=== PATIENT | male | born 1975 | race African-American/Black ===

== ENCOUNTER 2019-04-27 12:18 | Inpatient (IN) | payer BC, OTHER ==
[~2019-04-27] VITALS: Ht 177.8 cm; Wt 79.4 kg
[2019-04-27] VITALS (13 sets, daily range): BP systolic 112–158; BP diastolic 73–90
[2019-04-27] MEDS ORDERED: AMLO10TA80 PO (12:27)
[2019-04-27] MEDS ORDERED: ATOR40TA70 PO (12:27)
[2019-04-27 14:33] LABS: BASOPHILS % 0.9 % (0.0-2.0); EOSINOPHILS % 2.4 % (0.0-5.0); HEMATOCRIT. 39.5 % (42.0-52.0); HEMOGLOBIN. 12.8 g/dL (14.0-18.0); LYMPHOCYTES % 12.7 % (20.0-50.0); MEAN CORPUSCULAR VOLUME 80.2 fL (80.0-94.0); MEAN PLATELET VOLUME 8.7 fl (7.4-10.4); MONOCYTES % 10.1 % (2.0-8.0); NEUTROPHILS % 73.9 % (40.0-76.0); PLATELET 206 x1000/uL (130-400); RED BLOOD CELL COUNT 4.93 mill/uL (4.7-6.1); RED CELL DISTRIBUTION WIDTH 15.7 % (11.6-14.6)
[2019-04-27 14:40] LABS: CHLORIDE 95 mEq/L (98-107)
[2019-04-27 14:44] LABS: ETHANOL BLOOD < 10 mg/dL
[2019-04-27] MEDS ORDERED: FUROSEMIDE 40MG/4ML VIAL IVP ONE (15:00)
[2019-04-27] MEDS ORDERED: DEXAMETHASONE 10 MG/ML VIAL IV ONE (15:00)
[2019-04-27] MEDS ORDERED: LEVETIRACETAM 500MG PREMIX 200 ML IV ONE (15:00)
[2019-04-27] MEDS ORDERED: MANNITOL 20% (20GM/100ML) BAG 500ML PREMIX IV ONE (15:30)
[2019-04-27 16:14] LABS: CLARITY URINE CLOUDY (CLEAR); COLOR URINE YELLOW (YELLOW); KETONES URINE TRACE (NEGATIVE); LEUKOCYTE ESTERASE URINE NEGATIVE (NEGATIVE); NITRITE URINE NEGATIVE (NEGATIVE); OCCULT BLOOD URINE TRACE (NEGATIVE); PROTEIN URINE 3+ (NEGATIVE); SPECIFIC GRAVITY URINE 1.016 (1.005-1.030); UROBILINOGEN URINE 0.2 E.U./dL (0.2-1.0)
[2019-04-27 16:23] LABS: PARTIAL THROMBOPLASTIN TIME 24.7 sec (23.4-31.0); PROTHROMBIN TIME 10.5 sec (9.6-11.0)
[2019-04-27] MEDS ORDERED: MANNITOL 20% 100 ML IV NR (16:30)
[2019-04-27 16:33] LABS: *BARBITURATES SCREEN URINE NEGATIVE (NEGATIVE); *BENZODIAZEPINES SCREEN URINE NEGATIVE (NEGATIVE); *COCAINE SCREEN URINE NEGATIVE (NEGATIVE); METHADONE URINE SCREEN NEGATIVE (NEGATIVE)
[2019-04-27 16:34] LABS: *AMPHETAMINES SCREEN URINE NEGATIVE (NEGATIVE); CANNABINOID URINE SCREEN NEGATIVE (NEGATIVE); OPIATES URINE SCREEN NEGATIVE (NEGATIVE); PHENCYCLIDINE URINE SCREEN NEGATIVE (NEGATIVE)
[2019-04-27] MEDS ORDERED: CEFTRIAXONE 2 G PREMIX 50 ML IV ONE (16:45)
[2019-04-27] MEDS ORDERED: IOHEXOL-350 100 ML BOTTLE ONE (17:39)
[2019-04-27] MEDS ORDERED: DEXT 5%/0.45% NACL 1000ML 1,000 ML IV SCH (20:15)
[2019-04-27] MEDS ORDERED: MORPHINE SULFATE 2 MG/ML CPJ (NOT FOR IM USE) IV PRN (20:15)
[2019-04-27] MEDS: DEXAMETHASONE 4MG/ML 1ML VIAL IV SCH (20:55)
[2019-04-27] MEDS ORDERED: NICARDIPINE 100 MG in SODIUM CHLORIDE 0.9% 60 ML IV PRN (21:00)
[2019-04-27] MEDS: LEVETIRACETAM 500MG PREMIX 100 ML IV SCH (21:55)
[2019-04-28] VITALS (85 sets, daily range): BP systolic -3–159; BP diastolic -3–102
[2019-04-28] MEDS: DEXAMETHASONE 4MG/ML 1ML VIAL IV SCH ×4 (03:34→21:38)
[2019-04-28] MEDS: LEVETIRACETAM 500MG PREMIX 100 ML IV SCH ×2 (08:04→21:50)
[2019-04-28] MEDS: NICARDIPINE 100 MG in SODIUM CHLORIDE 0.9% 60 ML IV PRN ×2 (08:07→16:07)
[2019-04-28] MEDS ORDERED: BACITRACIN 15GM TUBE TOP ONE (10:49)
[2019-04-28] MEDS ORDERED: THROMBIN (BOVINE) 5000 UNITS/VIAL TOP ONE (10:50)
[2019-04-28] MEDS ORDERED: LIDOCAINE HCL/EPINEPHRINE 1%-EPI 1:100,000 20 ML VIAL ONE (10:50)
[2019-04-28] MEDS ORDERED: NORMAL SALINE 0.9% 10 ML SYR ONE (10:50)
[2019-04-28] MEDS ORDERED: BACITRACIN 50,000 UNITS/VIAL ONE (10:50)
[2019-04-28 10:55] LABS: HEMATOCRIT. 36.6 % (42.0-52.0); HEMOGLOBIN. 11.8 g/dL (14.0-18.0); MEAN CORPUSCULAR HEMOGLOBIN 25.9 pg (28.0-32.0); MEAN CORPUSCULAR VOLUME 80.6 fL (80.0-94.0); MEAN PLATELET VOLUME 8.8 fl (7.4-10.4); PLATELET 216 x1000/uL (130-400); RED BLOOD CELL COUNT 4.54 mill/uL (4.7-6.1); RED CELL DISTRIBUTION WIDTH 15.4 % (11.6-14.6)
[2019-04-28 11:30] LABS: PLATELET ESTIMATE NORMAL
[2019-04-28 11:51] LABS: INR 1.1; PARTIAL THROMBOPLASTIN TIME 21.9 sec (23.4-31.0); PROTHROMBIN TIME 10.9 sec (9.6-11.0)
[2019-04-28] MEDS ORDERED: NEOSTIGMINE METHYLSULFATE 1MG/ML 10 ML VIAL ONE (12:10)
[2019-04-28] MEDS ORDERED: ROCURONIUM BROMIDE 10MG/ML VIAL 5ML IV ONE (12:10)
[2019-04-28] MEDS ORDERED: FENTANYL CITRATE/PF 50MCG/ML 2ML VIAL ONE ×2 (12:10→12:58)
[2019-04-28] MEDS ORDERED: MIDAZOLAM HCL 2 MG/2 ML VIAL ONE (12:11)
[2019-04-28] MEDS ORDERED: GLYCOPYRROLATE 0.2 MG/ML 2ML VIAL ONE (12:11)
[2019-04-28] MEDS ORDERED: PROPOFOL 200MG/20ML VIAL IV ONE (12:11)
[2019-04-28] MEDS: SODIUM CHLORIDE 0.9% 1,000 ML IV SCH (12:30)
[2019-04-28] MEDS ORDERED: CEFAZOLIN SODIUM 1000MG/VIAL ONE (12:58)
[2019-04-28] MEDS ORDERED: DEXAMETHASONE 4MG/ML 1ML VIAL ONE (12:58)
[2019-04-28] MEDS ORDERED: LABETALOL HCL 5MG/ML VIAL 20ML IV ONE (12:58)
[2019-04-28] MEDS ORDERED: ONDANSETRON HCL 4MG/2ML INJ ONE (12:58)
[2019-04-28] MEDS ORDERED: TACROLIMUS 1MG CAPSULE PO ONE (13:15)
[2019-04-28] MEDS ORDERED: EPHEDRINE SULFATE 50MG/ML VIAL ONE (13:22)
[2019-04-28] MEDS ORDERED: CEFAZOLIN SODIUM 1000MG/VIAL IV SCH (14:00)
[2019-04-28] MEDS ORDERED: MYCOPHENOLATE MOFETIL 250MG CAPSULE PO SCH (14:00)
[2019-04-28] MEDS ORDERED: CEFAZOLIN 1000MG PREMIX 50 ML IV SCH (14:00)
[2019-04-28] MEDS: PROPOFOL 10MG/ML 100ML 100 ML IV PRN ×3 (14:35→21:55)
[2019-04-28] MEDS: MORPHINE SULFATE 2 MG/ML CPJ (NOT FOR IM USE) IV PRN ×2 (14:35→16:31)
[2019-04-28] MEDS ORDERED: DEXTROSE 50% WATER 50ML SYRINGE IV PRN (14:45)
[2019-04-28 14:52] LABS: BG BASE EXCESS -2.2 mmol/L (-2.0-2.0); BG CARBOXYHEMOGLOBIN 0.3 % (0.5-1.5); BG DEOXYHEMOGLOBIN 0.4 % (0.0-5.0); BG FRACTION INSPIRED OXYGEN 100; BG HCO3 ACT 20.9 mmol/L (22.0-26.0); BG METHEMOGLOBIN 0.4 % (0.0-1.5); BG OXYGEN SATURATION 99.6 % (92.0-98.5); BG OXYHEMOGLOBIN 98.9 % (94.0-97.0); BG PCO2 30.6 mmHg (35.0-45.0); BG PH 7.452 (7.350-7.450); BG PO2 438.7 mmHg (75.0-100.0); BG SAMPLE SITE RIGHT RADIAL; BG TIDAL VOLUME(mL) 500 mL; BG VENT MODE VENT - A/C; BG VENT RATE 12 set
[2019-04-28] MEDS: FAMOTIDINE 20MG/2ML VIAL IV SCH (15:39)
[2019-04-28] MEDS ORDERED: TACROLIMUS 1MG CAPSULE PO SCH ×2 (17:00)
[2019-04-28] MEDS: BLOOD SUGAR DIAGNOSTIC STRIP TEST SCH ×2 (17:18→21:00)
[2019-04-28] MEDS: INSULIN LISPRO 100 UNITS/ML SUBCUT SCH ×2 (17:35→21:39)
[2019-04-28] MEDS ORDERED: MORPHINE SULFATE 2 MG/ML CPJ (NOT FOR IM USE) IV PRN (17:52)
[2019-04-29] VITALS (98 sets, daily range): BP systolic 104–138; BP diastolic 56–87
[2019-04-29] MEDS: PROPOFOL 10MG/ML 100ML 100 ML IV PRN ×5 (02:04→21:15)
[2019-04-29] MEDS: DEXAMETHASONE 4MG/ML 1ML VIAL IV SCH ×4 (03:38→21:15)
[2019-04-29 05:55] LABS: HEMATOCRIT. 34.2 % (42.0-52.0); HEMOGLOBIN. 10.9 g/dL (14.0-18.0); MEAN CORPUSCULAR HEMOGLOBIN 25.8 pg (28.0-32.0); MEAN CORPUSCULAR VOLUME 80.8 fL (80.0-94.0); MEAN PLATELET VOLUME 8.6 fl (7.4-10.4); PLATELET 231 x1000/uL (130-400); RED BLOOD CELL COUNT 4.24 mill/uL (4.7-6.1); RED CELL DISTRIBUTION WIDTH 15.5 % (11.6-14.6)
[2019-04-29 06:07] LABS: CHLORIDE 95 mEq/L (98-107)
[2019-04-29] MEDS: BLOOD SUGAR DIAGNOSTIC STRIP TEST SCH ×4 (06:30→23:30)
[2019-04-29 06:34] LABS: PHOSPHORUS 7.8 mg/dL (2.5-4.9)
[2019-04-29 06:37] LABS: T4 FREE 1.85 ng/dL (0.76-1.46)
[2019-04-29] MEDS: INSULIN LISPRO 100 UNITS/ML SUBCUT SCH ×3 (07:15→18:29)
[2019-04-29 09:23] LABS: BG BASE EXCESS -4.8 mmol/L (-2.0-2.0); BG CARBOXYHEMOGLOBIN 0.3 % (0.5-1.5); BG DEOXYHEMOGLOBIN 8.2 % (0.0-5.0); BG FRACTION INSPIRED OXYGEN 40; BG HCO3 ACT 19.2 mmol/L (22.0-26.0); BG METHEMOGLOBIN 0.5 % (0.0-1.5); BG OXYGEN SATURATION 91.7 % (92.0-98.5); BG PCO2 31.8 mmHg (35.0-45.0); BG PH 7.398 (7.350-7.450); BG PO2 65.6 mmHg (75.0-100.0); BG SAMPLE SITE RIGHT RADIAL; BG TIDAL VOLUME(mL) 500 mL; BG TOTAL HEMOGLOBIN 11.7 g/dL (12.0-18.0); BG VENT MODE VENT - A/C; BG VENT RATE 12 set
[2019-04-29] MEDS: FAMOTIDINE 20MG/2ML VIAL IV SCH (09:31)
[2019-04-29] MEDS: LEVETIRACETAM 500MG PREMIX 100 ML IV SCH (09:49)
[2019-04-29] MEDS: NICARDIPINE 100 MG in SODIUM CHLORIDE 0.9% 60 ML IV PRN ×2 (09:50→18:45)
[2019-04-29 10:36] LABS: PLATELET ESTIMATE NORMAL
[2019-04-29] MEDS: CEFAZOLIN 1000MG PREMIX 50 ML IV SCH ×2 (11:00→13:41)
[2019-04-29] MEDS ORDERED: LIDOCAINE HCL 1% 20ML VIAL (Pyxis) INJ ONE (12:44)
[2019-04-29] MEDS: MORPHINE SULFATE 4 MG/ML CPJ (NOT FOR IM USE) IV PRN (14:59)
[2019-04-29] MEDS ORDERED: LEVETIRACETAM 750 MG in SODIUM CHLORIDE 0.9% 100 ML IV SCH (15:45)
[2019-04-29] MEDS: SODIUM CHLORIDE 0.9% 1,000 ML IV SCH (18:46)
[2019-04-29] MEDS: IPRATROPIUM/ALBUTEROL 0.5-3(2.5)MG/3ML NEB HHN PRN (20:31)
[2019-04-29] MEDS: LEVETIRACETAM 750 MG in SODIUM CHLORIDE 0.9% 100 ML IV SCH (22:18)
[2019-04-30] VITALS (93 sets, daily range): BP systolic 103–133; BP diastolic 53–77
[2019-04-30] MEDS: IPRATROPIUM/ALBUTEROL 0.5-3(2.5)MG/3ML NEB HHN PRN ×3 (00:09→16:00)
[2019-04-30] MEDS: NICARDIPINE 100 MG in SODIUM CHLORIDE 0.9% 60 ML IV PRN ×4 (02:21→21:29)
[2019-04-30] MEDS: DEXAMETHASONE 4MG/ML 1ML VIAL IV SCH ×4 (02:21→20:27)
[2019-04-30 04:21] LABS: MEAN CORPUSCULAR VOLUME 80.4 fL (80.0-94.0); MEAN PLATELET VOLUME 8.5 fl (7.4-10.4); PLATELET 230 x1000/uL (130-400); RED BLOOD CELL COUNT 3.86 mill/uL (4.7-6.1); RED CELL DISTRIBUTION WIDTH 15.6 % (11.6-14.6)
[2019-04-30 04:57] LABS: PHOSPHORUS 7.1 mg/dL (2.5-4.9)
[2019-04-30] MEDS: BLOOD SUGAR DIAGNOSTIC STRIP TEST SCH ×3 (06:38→17:50)
[2019-04-30] MEDS: INSULIN LISPRO 100 UNITS/ML SUBCUT SCH ×4 (06:40→18:11)
[2019-04-30] MEDS: MORPHINE SULFATE 4 MG/ML CPJ (NOT FOR IM USE) IV PRN ×6 (06:42→21:30)
[2019-04-30 07:42] LABS: BG BASE EXCESS -6.2 mmol/L (-2.0-2.0); BG CARBOXYHEMOGLOBIN 0.2 % (0.5-1.5); BG DEOXYHEMOGLOBIN 1.4 % (0.0-5.0); BG HCO3 ACT 18.4 mmol/L (22.0-26.0); BG METHEMOGLOBIN 0.6 % (0.0-1.5); BG OXYGEN SATURATION 98.6 % (92.0-98.5); BG OXYHEMOGLOBIN 97.8 % (94.0-97.0); BG PCO2 33.1 mmHg (35.0-45.0); BG PH 7.363 (7.350-7.450); BG PO2 194.8 mmHg (75.0-100.0); BG SAMPLE SITE RIGHT RADIAL; BG TIDAL VOLUME(mL) 500 mL; BG TOTAL HEMOGLOBIN 10.8 g/dL (12.0-18.0); BG VENT MODE VENT - A/C; BG VENT RATE 12 set
[2019-04-30] MEDS: PROPOFOL 10MG/ML 100ML 100 ML IV PRN ×4 (08:18→21:30)
[2019-04-30] MEDS: FAMOTIDINE 20MG/2ML VIAL IV SCH (08:23)
[2019-04-30] MEDS: LEVETIRACETAM 750 MG in SODIUM CHLORIDE 0.9% 100 ML IV SCH ×2 (08:43→21:29)
[2019-04-30] MEDS: SODIUM CHLORIDE 0.9% 1,000 ML IV SCH (12:29)
[2019-04-30 16:25] LABS: PLATELET ESTIMATE NORMAL
[2019-04-30] MEDS: AMLODIPINE 5MG TABLET PO SCH (20:27)
[2019-04-30] MEDS ORDERED: MINOXIDIL 2.5MG TABLET PO SCH (21:00)
[2019-05-01] VITALS (96 sets, daily range): BP systolic 100–140; BP diastolic 53–93
[2019-05-01] MEDS: BLOOD SUGAR DIAGNOSTIC STRIP TEST SCH ×5 (00:29→23:57)
[2019-05-01] MEDS: INSULIN LISPRO 100 UNITS/ML SUBCUT SCH ×5 (00:30→23:37)
[2019-05-01] MEDS: DEXAMETHASONE 4MG/ML 1ML VIAL IV SCH ×2 (02:39→08:42)
[2019-05-01] MEDS: PROPOFOL 10MG/ML 100ML 100 ML IV PRN ×5 (02:40→20:33)
[2019-05-01 05:41] LABS: HEMATOCRIT. 30.4 % (42.0-52.0); HEMOGLOBIN. 9.6 g/dL (14.0-18.0); MEAN CORPUSCULAR HEMOGLOBIN 25.5 pg (28.0-32.0); MEAN PLATELET VOLUME 8.8 fl (7.4-10.4); PLATELET 223 x1000/uL (130-400); RED BLOOD CELL COUNT 3.75 mill/uL (4.7-6.1)
[2019-05-01] MEDS: MORPHINE SULFATE 4 MG/ML CPJ (NOT FOR IM USE) IV PRN ×2 (06:35→23:25)
[2019-05-01] MEDS: NICARDIPINE 100 MG in SODIUM CHLORIDE 0.9% 60 ML IV PRN ×3 (06:39→20:32)
[2019-05-01 08:13] LABS: BG BASE EXCESS -9.2 mmol/L (-2.0-2.0); BG CARBOXYHEMOGLOBIN 0.3 % (0.5-1.5); BG DEOXYHEMOGLOBIN 1.1 % (0.0-5.0); BG HCO3 ACT 16.6 mmol/L (22.0-26.0); BG METHEMOGLOBIN 0.4 % (0.0-1.5); BG OXYGEN SATURATION 98.9 % (92.0-98.5); BG OXYHEMOGLOBIN 98.2 % (94.0-97.0); BG PCO2 35.7 mmHg (35.0-45.0); BG PH 7.286 (7.350-7.450); BG PO2 173.2 mmHg (75.0-100.0); BG SAMPLE SITE RIGHT RADIAL; BG TIDAL VOLUME(mL) 500 mL; BG TOTAL HEMOGLOBIN 10.5 g/dL (12.0-18.0); BG VENT MODE VENT - A/C; BG VENT RATE 12 set
[2019-05-01] MEDS: LEVETIRACETAM 750 MG in SODIUM CHLORIDE 0.9% 100 ML IV SCH ×2 (08:42→21:29)
[2019-05-01] MEDS: FAMOTIDINE 20MG/2ML VIAL IV SCH (08:43)
[2019-05-01 08:52] LABS: PHOSPHORUS 10.9 mg/dL (2.5-4.9)
[2019-05-01] MEDS ORDERED: METOPROLOL TARTRATE 25MG TABLET PO SCH (09:00)
[2019-05-01] MEDS: AMLODIPINE 5MG TABLET PO SCH ×3 (09:00→20:30)
[2019-05-01] MEDS ORDERED: CLONIDINE 0.1MG TABLET PO PRN (09:15)
[2019-05-01 10:51] LABS: PLATELET ESTIMATE NORMAL
[2019-05-01] MEDS: MINOXIDIL 2.5MG TABLET PO SCH (20:30)
[2019-05-01] MEDS: METOPROLOL TARTRATE 25MG TABLET PO SCH (20:31)
[2019-05-02] VITALS (98 sets, daily range): BP systolic 102–132; BP diastolic 48–75
[2019-05-02] MEDS: PROPOFOL 10MG/ML 100ML 100 ML IV PRN ×2 (01:14→09:49)
[2019-05-02] MEDS: NICARDIPINE 100 MG in SODIUM CHLORIDE 0.9% 60 ML IV PRN ×2 (03:44→11:14)
[2019-05-02] MEDS: MORPHINE SULFATE 4 MG/ML CPJ (NOT FOR IM USE) IV PRN (05:35)
[2019-05-02 05:49] LABS: HEMATOCRIT. 29.2 % (42.0-52.0); HEMOGLOBIN. 9.4 g/dL (14.0-18.0); MEAN CORPUSCULAR HEMOGLOBIN 25.7 pg (28.0-32.0); MEAN CORPUSCULAR VOLUME 79.6 fL (80.0-94.0); MEAN PLATELET VOLUME 8.7 fl (7.4-10.4); PLATELET 212 x1000/uL (130-400); RED BLOOD CELL COUNT 3.67 mill/uL (4.7-6.1); RED CELL DISTRIBUTION WIDTH 15.8 % (11.6-14.6)
[2019-05-02] MEDS: BLOOD SUGAR DIAGNOSTIC STRIP TEST SCH ×4 (05:50→23:11)
[2019-05-02] MEDS: INSULIN LISPRO 100 UNITS/ML SUBCUT SCH ×3 (05:50→18:00)
[2019-05-02 06:19] LABS: PHOSPHORUS 9.3 mg/dL (2.5-4.9)
[2019-05-02] MEDS: IPRATROPIUM/ALBUTEROL 0.5-3(2.5)MG/3ML NEB HHN PRN ×3 (08:40→17:44)
[2019-05-02 08:43] LABS: BG BASE EXCESS 9.9 mmol/L (-2.0-2.0); BG CARBOXYHEMOGLOBIN 0.8 % (0.5-1.5); BG DEOXYHEMOGLOBIN 3.2 % (0.0-5.0); BG FRACTION INSPIRED OXYGEN 50; BG HCO3 ACT 33.8 mmol/L (22.0-26.0); BG METHEMOGLOBIN 0.1 % (0.0-1.5); BG OXYGEN SATURATION 96.8 % (92.0-98.5); BG OXYHEMOGLOBIN 95.9 % (94.0-97.0); BG PCO2 42.3 mmHg (35.0-45.0); BG PO2 83.6 mmHg (75.0-100.0); BG SAMPLE SITE RIGHT RADIAL; BG TIDAL VOLUME(mL) 500 mL; BG TOTAL HEMOGLOBIN 13.7 g/dL (12.0-18.0); BG VENT MODE VENT - A/C; BG VENT RATE 12 set
[2019-05-02] MEDS: METOPROLOL TARTRATE 25MG TABLET PO SCH (09:50)
[2019-05-02] MEDS: FAMOTIDINE 20MG/2ML VIAL IV SCH (09:51)
[2019-05-02] MEDS: MINOXIDIL 2.5MG TABLET PO SCH ×2 (09:51→21:02)
[2019-05-02] MEDS: LEVETIRACETAM 750 MG in SODIUM CHLORIDE 0.9% 100 ML IV SCH ×2 (09:52→23:11)
[2019-05-02 10:46] LABS: PLATELET ESTIMATE NORMAL
[2019-05-02] MEDS: AMLODIPINE 5MG TABLET PO SCH ×2 (11:20→21:03)
[2019-05-02] MEDS: HYDRALAZINE HCL 50MG TABLET PO SCH ×2 (14:00→21:03)
[2019-05-02] MEDS: EPOETIN ALFA 4000UNITS/ML VIAL SUBCUT SCH (21:03)
[2019-05-03] VITALS (94 sets, daily range): BP systolic 102–141; BP diastolic 43–78
[2019-05-03] MEDS: PROPOFOL 10MG/ML 100ML 100 ML IV PRN ×2 (04:56→08:22)
[2019-05-03] MEDS: INSULIN LISPRO 100 UNITS/ML SUBCUT SCH ×5 (05:35→23:29)
[2019-05-03] MEDS: BLOOD SUGAR DIAGNOSTIC STRIP TEST SCH ×4 (05:35→23:22)
[2019-05-03] MEDS: HYDRALAZINE HCL 50MG TABLET PO SCH ×3 (06:00→21:31)
[2019-05-03 06:10] LABS: BASOPHILS % 0.2 % (0.0-2.0); HEMATOCRIT. 26.5 % (42.0-52.0); HEMOGLOBIN. 8.7 g/dL (14.0-18.0); LYMPHOCYTES % 8.6 % (20.0-50.0); MEAN CORPUSCULAR HEMOGLOBIN 26.2 pg (28.0-32.0); MEAN CORPUSCULAR VOLUME 80.2 fL (80.0-94.0); MEAN PLATELET VOLUME 8.4 fl (7.4-10.4); MONOCYTES % 10.1 % (2.0-8.0); NEUTROPHILS % 81.1 % (40.0-76.0); PLATELET 174 x1000/uL (130-400); RED CELL DISTRIBUTION WIDTH 15.7 % (11.6-14.6)
[2019-05-03 06:45] LABS: PHOSPHORUS 12.2 mg/dL (2.5-4.9)
[2019-05-03 07:37] LABS: BG BASE EXCESS -6.5 mmol/L (-2.0-2.0); BG CARBOXYHEMOGLOBIN 0.2 % (0.5-1.5); BG DEOXYHEMOGLOBIN 1.1 % (0.0-5.0); BG FRACTION INSPIRED OXYGEN 50; BG HCO3 ACT 19.1 mmol/L (22.0-26.0); BG METHEMOGLOBIN 0.3 % (0.0-1.5); BG OXYGEN SATURATION 98.9 % (92.0-98.5); BG OXYHEMOGLOBIN 98.4 % (94.0-97.0); BG PCO2 38.5 mmHg (35.0-45.0); BG PH 7.314 (7.350-7.450); BG SAMPLE SITE RIGHT RADIAL; BG TIDAL VOLUME(mL) 500 mL; BG VENT MODE VENT - A/C; BG VENT RATE 12 set
[2019-05-03] MEDS: METOPROLOL TARTRATE 100MG TABLET PO SCH ×2 (08:20→21:30)
[2019-05-03] MEDS: FAMOTIDINE 20MG/2ML VIAL IV SCH (08:20)
[2019-05-03] MEDS: MINOXIDIL 2.5MG TABLET PO SCH ×2 (08:20→21:31)
[2019-05-03] MEDS: AMLODIPINE 5MG TABLET PO SCH ×2 (08:21→21:31)
[2019-05-03] MEDS: LEVETIRACETAM 1000MG/100ML 100 ML IV SCH ×2 (09:23→21:30)
[2019-05-03] MEDS: MORPHINE SULFATE 4 MG/ML CPJ (NOT FOR IM USE) IV PRN ×2 (09:26→13:31)
[2019-05-03] MEDS ORDERED: PHENYTOIN SODIUM 500 MG in SODIUM CHLORIDE 0.9% 50 ML IV SCH (10:30)
[2019-05-03] MEDS: PHENYTOIN SODIUM 100MG/2ML VIAL IV SCH ×2 (14:01→21:31)
[2019-05-04] VITALS (95 sets, daily range): BP systolic 106–145; BP diastolic 47–87
[2019-05-04] MEDS: INSULIN LISPRO 100 UNITS/ML SUBCUT SCH ×3 (06:00→18:00)
[2019-05-04] MEDS: BLOOD SUGAR DIAGNOSTIC STRIP TEST SCH ×3 (06:15→18:10)
[2019-05-04] MEDS: HYDRALAZINE HCL 50MG TABLET PO SCH (06:19)
[2019-05-04] MEDS: PHENYTOIN SODIUM 100MG/2ML VIAL IV SCH ×3 (06:19→21:09)
[2019-05-04 06:23] LABS: HEMATOCRIT. 28.1 % (42.0-52.0); HEMOGLOBIN. 9.2 g/dL (14.0-18.0); MEAN CORPUSCULAR HEMOGLOBIN 25.9 pg (28.0-32.0); MEAN CORPUSCULAR VOLUME 79.7 fL (80.0-94.0); MEAN PLATELET VOLUME 8.2 fl (7.4-10.4); PLATELET 161 x1000/uL (130-400); RED BLOOD CELL COUNT 3.53 mill/uL (4.7-6.1); RED CELL DISTRIBUTION WIDTH 15.3 % (11.6-14.6)
[2019-05-04 06:26] LABS: PHOSPHORUS 7.4 mg/dL (2.5-4.9)
[2019-05-04] MEDS ORDERED: METOPROLOL TARTRATE 100MG TABLET NG SCH (09:00)
[2019-05-04] MEDS ORDERED: MINOXIDIL 2.5MG TABLET NG SCH (09:00)
[2019-05-04] MEDS: IPRATROPIUM/ALBUTEROL 0.5-3(2.5)MG/3ML NEB HHN PRN ×2 (09:09→12:43)
[2019-05-04] MEDS: LEVETIRACETAM 1000MG/100ML 100 ML IV SCH ×2 (09:27→21:09)
[2019-05-04] MEDS: FAMOTIDINE 20MG/2ML VIAL IV SCH (09:27)
[2019-05-04] MEDS ORDERED: MYCOPHENOLATE MOFETIL 200MG/ML ORAL SUSP PO SCH (10:00)
[2019-05-04] MEDS: SEVELAMER CARBONATE 800 MG TABLET PO SCH ×3 (10:14→17:21)
[2019-05-04] MEDS: AMLODIPINE 5MG TABLET NG SCH ×2 (10:15→21:11)
[2019-05-04 10:57] LABS: BG BASE EXCESS -0.8 mmol/L (-2.0-2.0); BG CARBOXYHEMOGLOBIN 0.3 % (0.5-1.5); BG DEOXYHEMOGLOBIN 1.5 % (0.0-5.0); BG FRACTION INSPIRED OXYGEN 35; BG HCO3 ACT 22.7 mmol/L (22.0-26.0); BG METHEMOGLOBIN 0.3 % (0.0-1.5); BG OXYGEN SATURATION 98.5 % (92.0-98.5); BG OXYHEMOGLOBIN 97.9 % (94.0-97.0); BG PCO2 32.9 mmHg (35.0-45.0); BG PH 7.456 (7.350-7.450); BG PO2 156.1 mmHg (75.0-100.0); BG SAMPLE SITE RIGHT RADIAL; BG TIDAL VOLUME(mL) 500 mL; BG TOTAL HEMOGLOBIN 9.6 g/dL (12.0-18.0); BG VENT MODE VENT - A/C; BG VENT RATE 12 set
[2019-05-04 13:52] LABS: PLATELET ESTIMATE NORMAL
[2019-05-04] MEDS ORDERED: MYCOPHENOLATE MOFETIL 250MG CAPSULE PO SCH (14:00)
[2019-05-04] MEDS: HYDRALAZINE HCL 50MG TABLET NG SCH ×2 (14:39→21:12)
[2019-05-04] MEDS: HYDRALAZINE 20MG/ML VIAL IV PRN (15:37)
[2019-05-04] MEDS ORDERED: PHENYTOIN SODIUM 100MG/2ML VIAL IV NR ×2 (16:00→17:15)
[2019-05-04] MEDS: LORAZEPAM 2MG/ML CPJ IV PRN (16:01)
[2019-05-04] MEDS ORDERED: ACETAMINOPHEN 325MG TABLET PO PRN (17:00)
[2019-05-04] MEDS ORDERED: ACETAMINOPHEN 650MG SUPP PR PRN (17:11)
[2019-05-04] MEDS: ACETAMINOPHEN 650MG/20.3ML UDC NG PRN (17:22)
[2019-05-04] MEDS: METOPROLOL TARTRATE 50MG TABLET NG SCH (21:11)
[2019-05-04] MEDS: MORPHINE SULFATE 4 MG/ML CPJ (NOT FOR IM USE) IV PRN (21:11)
[2019-05-04] MEDS ORDERED: ONDANSETRON HCL 4MG/2ML INJ IV NR (21:30)
[2019-05-04] MEDS: EPOETIN ALFA 4000UNITS/ML VIAL SUBCUT SCH (21:58)
[2019-05-05] VITALS (98 sets, daily range): BP systolic 112–168; BP diastolic 55–98
[2019-05-05] MEDS: HYDRALAZINE 20MG/ML VIAL IV PRN ×2 (04:10→16:37)
[2019-05-05] MEDS: PHENYTOIN SODIUM 100MG/2ML VIAL IV SCH ×3 (06:00→21:34)
[2019-05-05] MEDS: ONDANSETRON HCL 4MG/2ML INJ IV PRN ×3 (06:00→21:37)
[2019-05-05] MEDS: INSULIN LISPRO 100 UNITS/ML SUBCUT SCH ×4 (06:00→18:00)
[2019-05-05 06:01] LABS: BASOPHILS % 0.2 % (0.0-2.0); EOSINOPHILS % 1.9 % (0.0-5.0); HEMATOCRIT. 29.4 % (42.0-52.0); HEMOGLOBIN. 9.5 g/dL (14.0-18.0); LYMPHOCYTES % 7.5 % (20.0-50.0); MEAN CORPUSCULAR HEMOGLOBIN 25.9 pg (28.0-32.0); MEAN CORPUSCULAR VOLUME 80.1 fL (80.0-94.0); MEAN PLATELET VOLUME 8.5 fl (7.4-10.4); MONOCYTES % 9.3 % (2.0-8.0); NEUTROPHILS % 81.1 % (40.0-76.0); PLATELET 154 x1000/uL (130-400); RED BLOOD CELL COUNT 3.67 mill/uL (4.7-6.1); RED CELL DISTRIBUTION WIDTH 15.6 % (11.6-14.6)
[2019-05-05] MEDS: BLOOD SUGAR DIAGNOSTIC STRIP TEST SCH ×4 (06:01→18:13)
[2019-05-05] MEDS: HYDRALAZINE HCL 50MG TABLET NG SCH ×3 (06:03→21:34)
[2019-05-05] MEDS: SEVELAMER CARBONATE 800 MG TABLET PO SCH ×3 (06:04→18:17)
[2019-05-05 07:27] LABS: PHOSPHORUS 5.3 mg/dL (2.5-4.9)
[2019-05-05 08:15] LABS: BG BASE EXCESS -3.1 mmol/L (-2.0-2.0); BG CARBOXYHEMOGLOBIN 0.2 % (0.5-1.5); BG DEOXYHEMOGLOBIN 1.5 % (0.0-5.0); BG FRACTION INSPIRED OXYGEN 35; BG HCO3 ACT 19.5 mmol/L (22.0-26.0); BG METHEMOGLOBIN 0.4 % (0.0-1.5); BG OXYGEN SATURATION 98.5 % (92.0-98.5); BG OXYHEMOGLOBIN 97.9 % (94.0-97.0); BG PCO2 26.6 mmHg (35.0-45.0); BG PH 7.482 (7.350-7.450); BG PO2 153.8 mmHg (75.0-100.0); BG SAMPLE SITE RIGHT RADIAL; BG TIDAL VOLUME(mL) 500 mL; BG TOTAL HEMOGLOBIN 9.9 g/dL (12.0-18.0); BG VENT MODE VENT - A/C; BG VENT RATE 12 set
[2019-05-05] MEDS: LEVETIRACETAM 1000MG/100ML 100 ML IV SCH ×2 (09:21→21:32)
[2019-05-05] MEDS: FAMOTIDINE 20MG/2ML VIAL IV SCH (09:21)
[2019-05-05] MEDS: PREDNISONE 5MG TABLET NG SCH (09:22)
[2019-05-05] MEDS: AMLODIPINE 5MG TABLET NG SCH ×2 (09:22→21:34)
[2019-05-05] MEDS: METOPROLOL TARTRATE 50MG TABLET NG SCH ×2 (09:22→21:35)
[2019-05-05] MEDS: ACETAMINOPHEN 650MG/20.3ML UDC NG PRN ×2 (12:00→21:33)
[2019-05-05] MEDS: PIPERACILLIN/TAZOBACTAM 2.25 G in DEXTROSE 5% WATER 50 ML IV SCH (18:17)
[2019-05-05] MEDS ORDERED: VANCOMYCIN 1500MG in DEXTROSE 5% WATER 250ML IV NR (20:00)
[2019-05-06] VITALS (95 sets, daily range): BP systolic 103–170; BP diastolic 55–105
[2019-05-06] MEDS: BLOOD SUGAR DIAGNOSTIC STRIP TEST SCH ×5 (00:06→23:35)
[2019-05-06] MEDS: PHENYTOIN SODIUM 100MG/2ML VIAL IV SCH ×3 (05:34→21:13)
[2019-05-06] MEDS: PIPERACILLIN/TAZOBACTAM 2.25 G in DEXTROSE 5% WATER 50 ML IV SCH ×2 (05:34→17:14)
[2019-05-06] MEDS: HYDRALAZINE HCL 50MG TABLET NG SCH ×3 (05:34→21:13)
[2019-05-06] MEDS: INSULIN LISPRO 100 UNITS/ML SUBCUT SCH ×5 (06:00→23:35)
[2019-05-06 06:13] LABS: BASOPHILS % 0.2 % (0.0-2.0); EOSINOPHILS % 2.3 % (0.0-5.0); HEMATOCRIT. 31.2 % (42.0-52.0); HEMOGLOBIN. 9.9 g/dL (14.0-18.0); LYMPHOCYTES % 9.2 % (20.0-50.0); MEAN CORPUSCULAR HEMOGLOBIN 25.6 pg (28.0-32.0); MEAN CORPUSCULAR VOLUME 80.7 fL (80.0-94.0); MEAN PLATELET VOLUME 8.7 fl (7.4-10.4); MONOCYTES % 7.3 % (2.0-8.0); PLATELET 153 x1000/uL (130-400); RED BLOOD CELL COUNT 3.86 mill/uL (4.7-6.1); RED CELL DISTRIBUTION WIDTH 16.1 % (11.6-14.6)
[2019-05-06] MEDS: SEVELAMER CARBONATE 800 MG TABLET PO SCH ×3 (06:33→17:13)
[2019-05-06 06:46] LABS: PHOSPHORUS 4.8 mg/dL (2.5-4.9)
[2019-05-06 08:14] LABS: BG BASE EXCESS -5.6 mmol/L (-2.0-2.0); BG CARBOXYHEMOGLOBIN 0.2 % (0.5-1.5); BG DEOXYHEMOGLOBIN 1.4 % (0.0-5.0); BG HCO3 ACT 15.4 mmol/L (22.0-26.0); BG METHEMOGLOBIN 0.4 % (0.0-1.5); BG OXYGEN SATURATION 98.6 % (92.0-98.5); BG PCO2 18.3 mmHg (35.0-45.0); BG PH 7.544 (7.350-7.450); BG PO2 154.1 mmHg (75.0-100.0); BG SAMPLE SITE RIGHT RADIAL; BG TIDAL VOLUME(mL) 500 mL; BG TOTAL HEMOGLOBIN 9.1 g/dL (12.0-18.0); BG VENT MODE VENT - A/C; BG VENT RATE 12 set
[2019-05-06] MEDS: HYDRALAZINE 20MG/ML VIAL IV PRN ×2 (08:18→17:14)
[2019-05-06] MEDS: FAMOTIDINE 20MG/2ML VIAL IV SCH (08:18)
[2019-05-06] MEDS: PREDNISONE 5MG TABLET NG SCH (08:18)
[2019-05-06] MEDS: METOPROLOL TARTRATE 50MG TABLET NG SCH ×2 (08:18→21:13)
[2019-05-06] MEDS: LEVETIRACETAM 1000MG/100ML 100 ML IV SCH ×2 (08:19→21:14)
[2019-05-06] MEDS: AMLODIPINE 5MG TABLET NG SCH ×2 (08:21→21:14)
[2019-05-06] MEDS: ACETAMINOPHEN 650MG/20.3ML UDC NG PRN (09:54)
[2019-05-06] MEDS: MORPHINE SULFATE 4 MG/ML CPJ (NOT FOR IM USE) IV PRN ×2 (10:22→17:50)
[2019-05-06] MEDS: METOCLOPRAMIDE HCL 10MG/2ML VIAL IV SCH ×2 (17:14→23:35)
[2019-05-06] MEDS ORDERED: LACTULOSE 20G/30ML UDC PO NR (17:15)
[2019-05-06 18:13] LABS: BG BASE EXCESS 0.1 mmol/L (-2.0-2.0); BG CARBOXYHEMOGLOBIN 0.3 % (0.5-1.5); BG DEOXYHEMOGLOBIN 1.4 % (0.0-5.0); BG FRACTION INSPIRED OXYGEN 35; BG HCO3 ACT 22.4 mmol/L (22.0-26.0); BG METHEMOGLOBIN 0.3 % (0.0-1.5); BG OXYGEN SATURATION 98.6 % (92.0-98.5); BG PCO2 28.7 mmHg (35.0-45.0); BG PO2 143.8 mmHg (75.0-100.0); BG SAMPLE SITE RIGHT BRACHIAL; BG TIDAL VOLUME(mL) 400 mL; BG TOTAL HEMOGLOBIN 10.6 g/dL (12.0-18.0); BG VENT MODE VENT - A/C; BG VENT RATE 12 set
[2019-05-06] MEDS: CLONIDINE 0.1MG TABLET NG PRN (18:35)
[2019-05-06] MEDS: LORAZEPAM 2MG/ML CPJ IV PRN (18:56)
[2019-05-06] MEDS: ONDANSETRON HCL 4MG/2ML INJ IV PRN (21:14)
[2019-05-06] MEDS: EPOETIN ALFA 4000UNITS/ML VIAL SUBCUT SCH (21:20)
[2019-05-07] VITALS (100 sets, daily range): BP systolic 115–174; BP diastolic 56–106
[2019-05-07] MEDS: IPRATROPIUM/ALBUTEROL 0.5-3(2.5)MG/3ML NEB HHN PRN (01:16)
[2019-05-07] MEDS: HYDRALAZINE 20MG/ML VIAL IV PRN ×2 (04:19→13:21)
[2019-05-07 05:38] LABS: BASOPHILS % 0.4 % (0.0-2.0); EOSINOPHILS % 5.4 % (0.0-5.0); HEMATOCRIT. 29.9 % (42.0-52.0); HEMOGLOBIN. 9.5 g/dL (14.0-18.0); MEAN CORPUSCULAR HEMOGLOBIN 25.5 pg (28.0-32.0); MEAN CORPUSCULAR VOLUME 80.6 fL (80.0-94.0); MEAN PLATELET VOLUME 8.7 fl (7.4-10.4); MONOCYTES % 6.2 % (2.0-8.0); PLATELET 203 x1000/uL (130-400); RED CELL DISTRIBUTION WIDTH 15.8 % (11.6-14.6)
[2019-05-07] MEDS: PIPERACILLIN/TAZOBACTAM 2.25 G in DEXTROSE 5% WATER 50 ML IV SCH ×2 (05:39→18:31)
[2019-05-07] MEDS: PHENYTOIN SODIUM 100MG/2ML VIAL IV SCH ×3 (05:39→21:06)
[2019-05-07] MEDS: METOCLOPRAMIDE HCL 10MG/2ML VIAL IV SCH ×3 (05:39→18:32)
[2019-05-07] MEDS: HYDRALAZINE HCL 50MG TABLET NG SCH ×3 (05:39→21:07)
[2019-05-07] MEDS: BLOOD SUGAR DIAGNOSTIC STRIP TEST SCH ×3 (05:39→18:32)
[2019-05-07] MEDS: INSULIN LISPRO 100 UNITS/ML SUBCUT SCH ×3 (05:57→18:00)
[2019-05-07 05:59] LABS: PHOSPHORUS 5.5 mg/dL (2.5-4.9)
[2019-05-07] MEDS: SEVELAMER CARBONATE 800 MG TABLET PO SCH ×3 (06:01→18:31)
[2019-05-07] MEDS: PREDNISONE 5MG TABLET NG SCH (08:34)
[2019-05-07] MEDS: FAMOTIDINE 20MG/2ML VIAL IV SCH (08:34)
[2019-05-07] MEDS: LEVETIRACETAM 1000MG/100ML 100 ML IV SCH ×2 (08:34→20:53)
[2019-05-07] MEDS: LORAZEPAM 2MG/ML CPJ IV PRN ×2 (08:42→13:21)
[2019-05-07] MEDS: METOPROLOL TARTRATE 50MG TABLET NG SCH ×2 (09:00→21:08)
[2019-05-07] MEDS: AMLODIPINE 5MG TABLET NG SCH ×3 (09:00→21:07)
[2019-05-07 09:16] LABS: BG BASE EXCESS -0.3 mmol/L (-2.0-2.0); BG DEOXYHEMOGLOBIN 0.9 % (0.0-5.0); BG FRACTION INSPIRED OXYGEN 35; BG HCO3 ACT 22.5 mmol/L (22.0-26.0); BG METHEMOGLOBIN 0.1 % (0.0-1.5); BG OXYGEN SATURATION 99.1 % (92.0-98.5); BG PCO2 30.7 mmHg (35.0-45.0); BG PH 7.482 (7.350-7.450); BG PO2 176.8 mmHg (75.0-100.0); BG SAMPLE SITE RIGHT RADIAL; BG TIDAL VOLUME(mL) 400 mL; BG TOTAL HEMOGLOBIN 11.5 g/dL (12.0-18.0); BG VENT MODE VENT - A/C; BG VENT RATE 12 set
[2019-05-07] MEDS ORDERED: MORPHINE SULFATE 4 MG/ML CPJ (NOT FOR IM USE) IV SCH (12:45)
[2019-05-07] MEDS: CLONIDINE 0.1MG TABLET PO SCH ×2 (13:50→21:08)
[2019-05-07] MEDS: ONDANSETRON HCL 4MG/2ML INJ IV PRN (14:49)
[2019-05-07] MEDS ORDERED: DILTIAZEM HCL 5MG/ML 5ML VIAL IV NR (20:30)
[2019-05-08] VITALS (54 sets, daily range): BP systolic 121–169; BP diastolic 58–128
[2019-05-08] MEDS: BLOOD SUGAR DIAGNOSTIC STRIP TEST SCH ×4 (00:17→18:21)
[2019-05-08] MEDS: METOCLOPRAMIDE HCL 10MG/2ML VIAL IV SCH ×4 (00:22→17:30)
[2019-05-08 05:29] LABS: BASOPHILS % 0.2 % (0.0-2.0); EOSINOPHILS % 5.4 % (0.0-5.0); HEMATOCRIT. 29.3 % (42.0-52.0); HEMOGLOBIN. 9.2 g/dL (14.0-18.0); LYMPHOCYTES % 9.4 % (20.0-50.0); MEAN CORPUSCULAR HEMOGLOBIN 25.7 pg (28.0-32.0); MEAN CORPUSCULAR VOLUME 81.6 fL (80.0-94.0); MEAN PLATELET VOLUME 8.6 fl (7.4-10.4); MONOCYTES % 8.7 % (2.0-8.0); NEUTROPHILS % 76.3 % (40.0-76.0); PLATELET 187 x1000/uL (130-400); RED BLOOD CELL COUNT 3.59 mill/uL (4.7-6.1); RED CELL DISTRIBUTION WIDTH 16.1 % (11.6-14.6)
[2019-05-08] MEDS: INSULIN LISPRO 100 UNITS/ML SUBCUT SCH ×4 (05:50→18:00)
[2019-05-08 05:55] LABS: PHOSPHORUS 5.1 mg/dL (2.5-4.9)
[2019-05-08] MEDS: CLONIDINE 0.1MG TABLET PO SCH ×3 (06:02→21:49)
[2019-05-08] MEDS: PIPERACILLIN/TAZOBACTAM 2.25 G in DEXTROSE 5% WATER 50 ML IV SCH ×2 (06:02→17:31)
[2019-05-08] MEDS: HYDRALAZINE HCL 50MG TABLET NG SCH ×3 (06:03→21:48)
[2019-05-08] MEDS: AMLODIPINE 5MG TABLET NG SCH ×3 (06:03→21:49)
[2019-05-08] MEDS: SEVELAMER CARBONATE 800 MG TABLET PO SCH ×3 (06:04→17:30)
[2019-05-08] MEDS: PHENYTOIN SODIUM 100MG/2ML VIAL IV SCH ×3 (06:04→21:48)
[2019-05-08 07:56] LABS: BG BASE EXCESS 2.2 mmol/L (-2.0-2.0); BG CARBOXYHEMOGLOBIN 0.3 % (0.5-1.5); BG DEOXYHEMOGLOBIN 1.5 % (0.0-5.0); BG FRACTION INSPIRED OXYGEN 35; BG HCO3 ACT 27.5 mmol/L (22.0-26.0); BG METHEMOGLOBIN 0.1 % (0.0-1.5); BG OXYGEN SATURATION 98.5 % (92.0-98.5); BG OXYHEMOGLOBIN 98.1 % (94.0-97.0); BG PCO2 45.6 mmHg (35.0-45.0); BG PH 7.398 (7.350-7.450); BG PO2 142.4 mmHg (75.0-100.0); BG SAMPLE SITE RIGHT RADIAL; BG TIDAL VOLUME(mL) 400 mL; BG TOTAL HEMOGLOBIN 10.6 g/dL (12.0-18.0); BG VENT MODE VENT - A/C; BG VENT RATE 12 set
[2019-05-08] MEDS: LEVETIRACETAM 1000MG/100ML 100 ML IV SCH ×2 (08:40→20:03)
[2019-05-08] MEDS: FAMOTIDINE 20MG/2ML VIAL IV SCH (08:40)
[2019-05-08] MEDS: PREDNISONE 5MG TABLET NG SCH (08:40)
[2019-05-08] MEDS: METOPROLOL TARTRATE 50MG TABLET NG SCH ×2 (08:41→20:03)
[2019-05-08] MEDS ORDERED: VANCOMYCIN 1 G PREMIX 200 ML IV SCH (10:00)
[2019-05-09] VITALS (84 sets, daily range): BP systolic 109–190; BP diastolic 55–112
[2019-05-09] MEDS: BLOOD SUGAR DIAGNOSTIC STRIP TEST SCH ×4 (00:05→17:30)
[2019-05-09] MEDS: METOCLOPRAMIDE HCL 10MG/2ML VIAL IV SCH ×4 (00:08→17:29)
[2019-05-09] MEDS: HYDRALAZINE 20MG/ML VIAL IV PRN ×2 (03:23→10:13)
[2019-05-09] MEDS: CLONIDINE 0.1MG TABLET NG PRN (04:07)
[2019-05-09] MEDS: INSULIN LISPRO 100 UNITS/ML SUBCUT SCH ×4 (05:15→18:00)
[2019-05-09] MEDS: PIPERACILLIN/TAZOBACTAM 2.25 G in DEXTROSE 5% WATER 50 ML IV SCH ×2 (05:25→17:29)
[2019-05-09] MEDS: PHENYTOIN SODIUM 100MG/2ML VIAL IV SCH ×3 (05:25→21:30)
[2019-05-09] MEDS: CLONIDINE 0.1MG TABLET PO SCH ×3 (05:25→21:31)
[2019-05-09] MEDS: AMLODIPINE 5MG TABLET NG SCH ×3 (05:26→21:31)
[2019-05-09] MEDS: HYDRALAZINE HCL 50MG TABLET NG SCH ×3 (05:26→21:31)
[2019-05-09 05:33] LABS: BASOPHILS % 0.3 % (0.0-2.0); EOSINOPHILS % 3.8 % (0.0-5.0); HEMATOCRIT. 30.7 % (42.0-52.0); HEMOGLOBIN. 9.6 g/dL (14.0-18.0); LYMPHOCYTES % 10.4 % (20.0-50.0); MEAN CORPUSCULAR HEMOGLOBIN 25.5 pg (28.0-32.0); MEAN CORPUSCULAR VOLUME 81.2 fL (80.0-94.0); MEAN PLATELET VOLUME 8.5 fl (7.4-10.4); MONOCYTES % 5.8 % (2.0-8.0); NEUTROPHILS % 79.7 % (40.0-76.0); PLATELET 205 x1000/uL (130-400); RED BLOOD CELL COUNT 3.78 mill/uL (4.7-6.1); RED CELL DISTRIBUTION WIDTH 15.3 % (11.6-14.6)
[2019-05-09 05:45] LABS: PHOSPHORUS 3.8 mg/dL (2.5-4.9)
[2019-05-09] MEDS: SEVELAMER CARBONATE 800 MG TABLET PO SCH ×3 (06:40→17:29)
[2019-05-09] MEDS ORDERED: LIDOCAINE HCL/EPINEPHRINE 1%-EPI 1:100,000 20 ML VIAL ONE (10:19)
[2019-05-09] MEDS: FAMOTIDINE 20MG/2ML VIAL IV SCH (10:54)
[2019-05-09] MEDS: PREDNISONE 5MG TABLET NG SCH (10:54)
[2019-05-09] MEDS: LEVETIRACETAM 1000MG/100ML 100 ML IV SCH ×2 (10:54→20:18)
[2019-05-09] MEDS: METOPROLOL TARTRATE 50MG TABLET NG SCH ×2 (10:54→20:19)
[2019-05-09 12:24] LABS: HEMATOCRIT. 30.3 % (42.0-52.0); HEMOGLOBIN. 9.5 g/dL (14.0-18.0); MEAN CORPUSCULAR HEMOGLOBIN 25.4 pg (28.0-32.0); MEAN CORPUSCULAR VOLUME 80.7 fL (80.0-94.0); MEAN PLATELET VOLUME 8.2 fl (7.4-10.4); PLATELET 209 x1000/uL (130-400); RED BLOOD CELL COUNT 3.76 mill/uL (4.7-6.1); RED CELL DISTRIBUTION WIDTH 15.9 % (11.6-14.6)
[2019-05-09] MEDS ORDERED: MIDAZOLAM HCL 2 MG/2 ML VIAL ONE (12:25)
[2019-05-09] MEDS ORDERED: ROCURONIUM BROMIDE 10MG/ML VIAL 5ML IV ONE (12:25)
[2019-05-09 13:40] LABS: PLATELET ESTIMATE NORMAL
[2019-05-09] MEDS: NICARDIPINE 100 MG in SODIUM CHLORIDE 0.9% 60 ML IV PRN (13:50)
[2019-05-09] MEDS: MORPHINE SULFATE 4 MG/ML CPJ (NOT FOR IM USE) IV PRN (14:34)
[2019-05-09] MEDS ORDERED: SORBITOL 70% SOLN 30ML PO SCH (16:00)
[2019-05-09] MEDS: PANTOPRAZOLE SODIUM 40 MG/VIAL IV SCH (20:18)
[2019-05-09] MEDS: ACETAMINOPHEN 650MG/20.3ML UDC NG PRN (20:18)
[2019-05-10] VITALS (97 sets, daily range): BP systolic 119–157; BP diastolic 57–95
[2019-05-10] MEDS: BLOOD SUGAR DIAGNOSTIC STRIP TEST SCH ×5 (00:42→23:45)
[2019-05-10] MEDS: METOCLOPRAMIDE HCL 10MG/2ML VIAL IV SCH ×4 (00:42→21:09)
[2019-05-10] MEDS: PHENYTOIN SODIUM 100MG/2ML VIAL IV SCH ×3 (05:18→21:06)
[2019-05-10] MEDS: HYDRALAZINE HCL 50MG TABLET NG SCH ×3 (05:19→21:07)
[2019-05-10] MEDS: CLONIDINE 0.1MG TABLET PO SCH ×3 (05:19→21:07)
[2019-05-10] MEDS: AMLODIPINE 5MG TABLET NG SCH ×3 (05:19→21:07)
[2019-05-10] MEDS: INSULIN LISPRO 100 UNITS/ML SUBCUT SCH ×5 (05:20→23:45)
[2019-05-10] MEDS: NICARDIPINE 100 MG in SODIUM CHLORIDE 0.9% 60 ML IV PRN ×2 (05:31→13:58)
[2019-05-10] MEDS: PIPERACILLIN/TAZOBACTAM 2.25 G in DEXTROSE 5% WATER 50 ML IV SCH ×2 (05:31→18:29)
[2019-05-10 05:48] LABS: BASOPHILS % 0.3 % (0.0-2.0); EOSINOPHILS % 2.8 % (0.0-5.0); HEMATOCRIT. 30.5 % (42.0-52.0); HEMOGLOBIN. 9.7 g/dL (14.0-18.0); LYMPHOCYTES % 7.9 % (20.0-50.0); MEAN CORPUSCULAR VOLUME 81.9 fL (80.0-94.0); MEAN PLATELET VOLUME 8.6 fl (7.4-10.4); MONOCYTES % 7.6 % (2.0-8.0); NEUTROPHILS % 81.4 % (40.0-76.0); PLATELET 202 x1000/uL (130-400); RED BLOOD CELL COUNT 3.72 mill/uL (4.7-6.1); RED CELL DISTRIBUTION WIDTH 15.7 % (11.6-14.6)
[2019-05-10 06:14] LABS: PHOSPHORUS 3.2 mg/dL (2.5-4.9)
[2019-05-10 06:25] LABS: INR 1.1; PARTIAL THROMBOPLASTIN TIME 30.2 sec (23.4-31.0); PROTHROMBIN TIME 11.4 sec (9.6-11.0)
[2019-05-10] MEDS: SEVELAMER CARBONATE 800 MG TABLET PO SCH ×3 (07:00→17:00)
[2019-05-10] MEDS: METOPROLOL TARTRATE 50MG TABLET NG SCH ×2 (09:00→21:08)
[2019-05-10] MEDS: PREDNISONE 5MG TABLET NG SCH (09:00)
[2019-05-10] MEDS: PANTOPRAZOLE SODIUM 40 MG/VIAL IV SCH ×2 (10:00→21:06)
[2019-05-10] MEDS: LEVETIRACETAM 1000MG/100ML 100 ML IV SCH ×2 (10:00→21:10)
[2019-05-10] MEDS: MORPHINE SULFATE 4 MG/ML CPJ (NOT FOR IM USE) IV PRN ×2 (16:36→19:29)
[2019-05-10] MEDS: HYDRALAZINE 20MG/ML VIAL IV PRN (16:37)
[2019-05-10] MEDS ORDERED: MIDAZOLAM HCL 5 MG/5 ML VIAL ONE (17:14)
[2019-05-10] MEDS ORDERED: FENTANYL CITRATE/PF 50MCG/ML 2ML VIAL ONE (17:15)
[2019-05-10] MEDS ORDERED: SODIUM CHLORIDE 0.9% IV PRN (21:15)
[2019-05-10] MEDS ORDERED: NICARDIPINE IV PRN (21:15)
[2019-05-10] MEDS: ACETAMINOPHEN 650MG/20.3ML UDC NG PRN (23:45)
[2019-05-11] VITALS (87 sets, daily range): BP systolic 96–151; BP diastolic 53–92
[2019-05-11] MEDS: NICARDIPINE 100 MG in SODIUM CHLORIDE 0.9% 60 ML IV PRN ×2 (01:31→09:02)
[2019-05-11] MEDS: MORPHINE SULFATE 4 MG/ML CPJ (NOT FOR IM USE) IV PRN (02:42)
[2019-05-11] MEDS: METOCLOPRAMIDE HCL 10MG/2ML VIAL IV SCH ×3 (05:01→21:05)
[2019-05-11] MEDS: PIPERACILLIN/TAZOBACTAM 2.25 G in DEXTROSE 5% WATER 50 ML IV SCH ×2 (05:01→17:02)
[2019-05-11] MEDS: PHENYTOIN SODIUM 100MG/2ML VIAL IV SCH ×3 (05:01→21:05)
[2019-05-11] MEDS: HYDRALAZINE HCL 50MG TABLET NG SCH ×3 (05:02→21:05)
[2019-05-11] MEDS: AMLODIPINE 5MG TABLET NG SCH ×3 (05:02→21:05)
[2019-05-11] MEDS: CLONIDINE 0.1MG TABLET PO SCH ×3 (05:02→21:05)
[2019-05-11 05:28] LABS: HEMATOCRIT. 31.5 % (42.0-52.0); HEMOGLOBIN. 9.8 g/dL (14.0-18.0); MEAN CORPUSCULAR HEMOGLOBIN 25.1 pg (28.0-32.0); MEAN PLATELET VOLUME 8.1 fl (7.4-10.4); PLATELET 254 x1000/uL (130-400); RED BLOOD CELL COUNT 3.89 mill/uL (4.7-6.1); RED CELL DISTRIBUTION WIDTH 15.6 % (11.6-14.6)
[2019-05-11] MEDS: INSULIN LISPRO 100 UNITS/ML SUBCUT SCH ×4 (05:40→23:56)
[2019-05-11] MEDS: BLOOD SUGAR DIAGNOSTIC STRIP TEST SCH ×4 (05:40→23:56)
[2019-05-11 05:48] LABS: PHOSPHORUS 5.1 mg/dL (2.5-4.9)
[2019-05-11] MEDS: SEVELAMER CARBONATE 800 MG TABLET PO SCH ×3 (07:21→17:02)
[2019-05-11] MEDS: PREDNISONE 5MG TABLET NG SCH (09:02)
[2019-05-11] MEDS: METOPROLOL TARTRATE 50MG TABLET NG SCH ×2 (09:02→21:04)
[2019-05-11] MEDS: LEVETIRACETAM 1000MG/100ML 100 ML IV SCH ×2 (09:28→21:04)
[2019-05-11 10:52] LABS: PLATELET ESTIMATE NORMAL
[2019-05-12] VITALS (47 sets, daily range): BP systolic 114–169; BP diastolic 51–122
[2019-05-12] MEDS: HYDRALAZINE 20MG/ML VIAL IV PRN ×2 (04:14→18:11)
[2019-05-12] MEDS: AMLODIPINE 5MG TABLET NG SCH ×3 (05:15→21:12)
[2019-05-12] MEDS: HYDRALAZINE HCL 50MG TABLET NG SCH ×3 (05:15→21:16)
[2019-05-12] MEDS: CLONIDINE 0.1MG TABLET PO SCH ×3 (05:15→21:12)
[2019-05-12] MEDS: METOCLOPRAMIDE HCL 10MG/2ML VIAL IV SCH ×3 (05:15→21:12)
[2019-05-12] MEDS: PHENYTOIN SODIUM 100MG/2ML VIAL IV SCH ×3 (05:15→21:12)
[2019-05-12] MEDS: PIPERACILLIN/TAZOBACTAM 2.25 G in DEXTROSE 5% WATER 50 ML IV SCH ×2 (05:16→17:24)
[2019-05-12 05:33] LABS: BASOPHILS % 0.5 % (0.0-2.0); EOSINOPHILS % 4.1 % (0.0-5.0); HEMATOCRIT. 27.3 % (42.0-52.0); HEMOGLOBIN. 8.8 g/dL (14.0-18.0); LYMPHOCYTES % 9.8 % (20.0-50.0); MEAN CORPUSCULAR HEMOGLOBIN 25.9 pg (28.0-32.0); MEAN CORPUSCULAR VOLUME 80.6 fL (80.0-94.0); MEAN PLATELET VOLUME 8.1 fl (7.4-10.4); MONOCYTES % 6.7 % (2.0-8.0); NEUTROPHILS % 78.9 % (40.0-76.0); PLATELET 212 x1000/uL (130-400); RED BLOOD CELL COUNT 3.38 mill/uL (4.7-6.1); RED CELL DISTRIBUTION WIDTH 15.8 % (11.6-14.6)
[2019-05-12 05:49] LABS: PHOSPHORUS 3.8 mg/dL (2.5-4.9)
[2019-05-12] MEDS: INSULIN LISPRO 100 UNITS/ML SUBCUT SCH ×3 (06:00→17:16)
[2019-05-12] MEDS: BLOOD SUGAR DIAGNOSTIC STRIP TEST SCH ×3 (06:02→17:16)
[2019-05-12] MEDS: SEVELAMER CARBONATE 800 MG TABLET PO SCH ×3 (06:03→17:24)
[2019-05-12] MEDS: IPRATROPIUM/ALBUTEROL 0.5-3(2.5)MG/3ML NEB HHN PRN ×2 (07:56→15:39)
[2019-05-12] MEDS: METOPROLOL TARTRATE 50MG TABLET NG SCH ×2 (08:26→21:12)
[2019-05-12] MEDS: LEVETIRACETAM 1000MG/100ML 100 ML IV SCH ×2 (08:26→21:12)
[2019-05-12] MEDS: PREDNISONE 5MG TABLET NG SCH (08:27)
[2019-05-12] MEDS: SIMETHICONE 80MG TABLET CHEW PO SCH ×3 (13:18→21:13)
[2019-05-13] VITALS (20 sets, daily range): BP systolic 110–160; BP diastolic 66–100
[2019-05-13 06:04] LABS: BASOPHILS % 0.6 % (0.0-2.0); EOSINOPHILS % 4.5 % (0.0-5.0); HEMATOCRIT. 29.6 % (42.0-52.0); HEMOGLOBIN. 9.5 g/dL (14.0-18.0); LYMPHOCYTES % 10.9 % (20.0-50.0); MEAN CORPUSCULAR VOLUME 81.5 fL (80.0-94.0); MEAN PLATELET VOLUME 7.8 fl (7.4-10.4); MONOCYTES % 6.7 % (2.0-8.0); NEUTROPHILS % 77.3 % (40.0-76.0); PLATELET 223 x1000/uL (130-400); RED BLOOD CELL COUNT 3.64 mill/uL (4.7-6.1); RED CELL DISTRIBUTION WIDTH 15.4 % (11.6-14.6)
[2019-05-13 06:20] LABS: PHOSPHORUS 5.3 mg/dL (2.5-4.9)
[2019-05-13] MEDS: INSULIN LISPRO 100 UNITS/ML SUBCUT SCH ×4 (06:45→17:48)
[2019-05-13] MEDS: METOCLOPRAMIDE HCL 10MG/2ML VIAL IV SCH ×3 (07:01→21:05)
[2019-05-13] MEDS: PHENYTOIN SODIUM 100MG/2ML VIAL IV SCH ×3 (07:01→21:05)
[2019-05-13] MEDS: AMLODIPINE 5MG TABLET NG SCH ×3 (07:02→21:06)
[2019-05-13] MEDS: HYDRALAZINE HCL 50MG TABLET NG SCH (07:02)
[2019-05-13] MEDS: CLONIDINE 0.1MG TABLET PO SCH ×3 (07:02→21:06)
[2019-05-13] MEDS: BLOOD SUGAR DIAGNOSTIC STRIP TEST SCH ×4 (07:03→17:48)
[2019-05-13] MEDS: METOPROLOL TARTRATE 50MG TABLET NG SCH ×2 (09:00→21:06)
[2019-05-13] MEDS: LEVETIRACETAM 1000MG/100ML 100 ML IV SCH ×2 (16:09→22:38)
[2019-05-13] MEDS: SIMETHICONE 80MG TABLET CHEW PO SCH (16:22)
[2019-05-13] MEDS: HYDRALAZINE HCL 100MG TABLET NG SCH ×2 (16:23→21:06)
[2019-05-13] MEDS: ACETAMINOPHEN 650MG/20.3ML UDC NG PRN (16:24)
[2019-05-13] MEDS: SEVELAMER CARBONATE 800 MG TABLET PO SCH ×2 (16:29→18:00)
[2019-05-13] MEDS: PREDNISONE 5MG TABLET NG SCH (16:29)
[2019-05-13] MEDS: IPRATROPIUM/ALBUTEROL 0.5-3(2.5)MG/3ML NEB HHN PRN (20:18)
[2019-05-14] VITALS (10 sets, daily range): BP systolic 111–142; BP diastolic 65–89
[2019-05-14] MEDS: IPRATROPIUM/ALBUTEROL 0.5-3(2.5)MG/3ML NEB HHN PRN ×2 (00:25→04:30)
[2019-05-14] MEDS: BLOOD SUGAR DIAGNOSTIC STRIP TEST SCH ×4 (00:55→18:33)
[2019-05-14] MEDS: CLONIDINE 0.1MG TABLET PO SCH ×3 (05:24→21:25)
[2019-05-14] MEDS: AMLODIPINE 5MG TABLET NG SCH ×3 (05:24→21:25)
[2019-05-14] MEDS: METOCLOPRAMIDE HCL 10MG/2ML VIAL IV SCH ×3 (05:25→21:16)
[2019-05-14] MEDS: HYDRALAZINE HCL 100MG TABLET NG SCH ×3 (05:25→21:24)
[2019-05-14] MEDS: PHENYTOIN SODIUM 100MG/2ML VIAL IV SCH ×3 (05:25→21:16)
[2019-05-14 05:57] LABS: BASOPHILS % 0.9 % (0.0-2.0); EOSINOPHILS % 4.4 % (0.0-5.0); HEMATOCRIT. 26.5 % (42.0-52.0); HEMOGLOBIN. 8.6 g/dL (14.0-18.0); LYMPHOCYTES % 11.2 % (20.0-50.0); MEAN CORPUSCULAR HEMOGLOBIN 26.2 pg (28.0-32.0); MEAN CORPUSCULAR VOLUME 81.1 fL (80.0-94.0); MEAN PLATELET VOLUME 8.1 fl (7.4-10.4); MONOCYTES % 6.8 % (2.0-8.0); NEUTROPHILS % 76.7 % (40.0-76.0); PLATELET 222 x1000/uL (130-400); RED BLOOD CELL COUNT 3.27 mill/uL (4.7-6.1); RED CELL DISTRIBUTION WIDTH 15.4 % (11.6-14.6)
[2019-05-14] MEDS: INSULIN LISPRO 100 UNITS/ML SUBCUT SCH ×4 (05:58→18:00)
[2019-05-14] MEDS: ACETAMINOPHEN 650MG/20.3ML UDC NG PRN (06:40)
[2019-05-14 07:30] LABS: PHOSPHORUS 4.9 mg/dL (2.5-4.9)
[2019-05-14] MEDS: PREDNISONE 5MG TABLET NG SCH (10:28)
[2019-05-14] MEDS: LEVETIRACETAM 1,000 MG in SODIUM CHLORIDE 0.9% 100 ML IV SCH ×2 (10:28→21:16)
[2019-05-14] MEDS: SIMETHICONE 80MG TABLET CHEW PO SCH ×4 (10:29→21:24)
[2019-05-14] MEDS: SEVELAMER CARBONATE 800 MG TABLET PO SCH ×3 (10:29→18:33)
[2019-05-14] MEDS: METOPROLOL TARTRATE 50MG TABLET NG SCH ×2 (10:29→21:24)
[2019-05-14] MEDS: HYDRALAZINE 20MG/ML VIAL IV PRN ×2 (12:20→18:33)
[2019-05-14 17:29] LABS: BG BASE EXCESS -5.9 mmol/L (-2.0-2.0); BG CARBOXYHEMOGLOBIN 0.2 % (0.5-1.5); BG CPAP (cmH2O) 0 cm(H2O); BG HCO3 ACT 19.8 mmol/L (22.0-26.0); BG METHEMOGLOBIN 0.3 % (0.0-1.5); BG OXYHEMOGLOBIN 96.5 % (94.0-97.0); BG PCO2 39.7 mmHg (35.0-45.0); BG PH 7.316 (7.350-7.450); BG PO2 100.5 mmHg (75.0-100.0); BG SAMPLE SITE RIGHT RADIAL; BG VENT MODE VENT - CPAP
[2019-05-14] MEDS ORDERED: CEFAZOLIN 1000MG PREMIX 50 ML IV PRN (17:45)
[2019-05-14 18:12] LABS: BG BASE EXCESS -6.5 mmol/L (-2.0-2.0); BG CARBOXYHEMOGLOBIN 0.3 % (0.5-1.5); BG CPAP (cmH2O) 0 cm(H2O); BG DEOXYHEMOGLOBIN 1.9 % (0.0-5.0); BG HCO3 ACT 18.8 mmol/L (22.0-26.0); BG METHEMOGLOBIN 0.3 % (0.0-1.5); BG OXYGEN SATURATION 98.1 % (92.0-98.5); BG OXYHEMOGLOBIN 97.5 % (94.0-97.0); BG PCO2 36.6 mmHg (35.0-45.0); BG PH 7.329 (7.350-7.450); BG PO2 125.8 mmHg (75.0-100.0); BG SAMPLE SITE RIGHT BRACHIAL; BG TOTAL HEMOGLOBIN 9.8 g/dL (12.0-18.0); BG VENT MODE VENT - CPAP
[2019-05-14 18:14] LABS: CLARITY URINE CLOUDY (CLEAR); COLOR URINE YELLOW (YELLOW); KETONES URINE 1+ (NEGATIVE); LEUKOCYTE ESTERASE URINE NEGATIVE (NEGATIVE); NITRITE URINE NEGATIVE (NEGATIVE); OCCULT BLOOD URINE TRACE (NEGATIVE); PH URINE 5.5 (4.5-8.0); PROTEIN URINE 2+ (NEGATIVE); SPECIFIC GRAVITY URINE 1.015 (1.005-1.030); UROBILINOGEN URINE 0.2 E.U./dL (0.2-1.0)
[2019-05-15] VITALS (25 sets, daily range): BP systolic 121–170; BP diastolic 70–105
[2019-05-15] MEDS: BLOOD SUGAR DIAGNOSTIC STRIP TEST SCH ×5 (00:55→23:43)
[2019-05-15] MEDS: METOCLOPRAMIDE HCL 10MG/2ML VIAL IV SCH ×3 (05:34→21:48)
[2019-05-15] MEDS: PHENYTOIN SODIUM 100MG/2ML VIAL IV SCH ×3 (05:34→21:48)
[2019-05-15] MEDS: AMLODIPINE 5MG TABLET NG SCH ×3 (05:35→21:46)
[2019-05-15] MEDS: HYDRALAZINE HCL 100MG TABLET NG SCH ×3 (05:35→21:49)
[2019-05-15 05:36] LABS: BASOPHILS % 0.7 % (0.0-2.0); EOSINOPHILS % 4.4 % (0.0-5.0); HEMATOCRIT. 25.6 % (42.0-52.0); HEMOGLOBIN. 8.3 g/dL (14.0-18.0); LYMPHOCYTES % 8.2 % (20.0-50.0); MEAN CORPUSCULAR HEMOGLOBIN 26.3 pg (28.0-32.0); MEAN CORPUSCULAR VOLUME 81.4 fL (80.0-94.0); MONOCYTES % 6.3 % (2.0-8.0); NEUTROPHILS % 80.4 % (40.0-76.0); PLATELET 265 x1000/uL (130-400); RED BLOOD CELL COUNT 3.15 mill/uL (4.7-6.1); RED CELL DISTRIBUTION WIDTH 15.5 % (11.6-14.6)
[2019-05-15] MEDS: CLONIDINE 0.1MG TABLET PO SCH ×3 (05:36→23:42)
[2019-05-15] MEDS: INSULIN LISPRO 100 UNITS/ML SUBCUT SCH ×3 (05:45→12:00)
[2019-05-15 07:14] LABS: PHOSPHORUS 6.6 mg/dL (2.5-4.9)
[2019-05-15] MEDS: SEVELAMER CARBONATE 800 MG TABLET PO SCH (08:00)
[2019-05-15] MEDS: SIMETHICONE 80MG TABLET CHEW PO SCH ×4 (08:30→21:48)
[2019-05-15] MEDS: METOPROLOL TARTRATE 50MG TABLET NG SCH ×2 (09:00→13:59)
[2019-05-15] MEDS: PREDNISONE 5MG TABLET NG SCH ×2 (09:00→14:00)
[2019-05-15] MEDS: LEVETIRACETAM 1,000 MG in SODIUM CHLORIDE 0.9% 100 ML IV SCH ×2 (09:06→21:47)
[2019-05-15] MEDS ORDERED: CEFAZOLIN SODIUM 1000MG/VIAL IV ONE (11:00)
[2019-05-15] MEDS ORDERED: MIDAZOLAM HCL 5 MG/5 ML VIAL ONE (11:16)
[2019-05-15] MEDS ORDERED: FENTANYL CITRATE/PF 50MCG/ML 2ML VIAL ONE (11:16)
[2019-05-15] MEDS ORDERED: MIDAZOLAM HCL 5 MG/5 ML VIAL IV PRN (11:43)
[2019-05-15] MEDS ORDERED: FENTANYL CITRATE/PF 50MCG/ML 2ML VIAL IV PRN (11:44)
[2019-05-15 13:54] LABS: BG BASE EXCESS -10.1 mmol/L (-2.0-2.0); BG CARBOXYHEMOGLOBIN 0.3 % (0.5-1.5); BG CPAP (cmH2O) 0 cm(H2O); BG DEOXYHEMOGLOBIN 1.9 % (0.0-5.0); BG HCO3 ACT 15.4 mmol/L (22.0-26.0); BG METHEMOGLOBIN 0.4 % (0.0-1.5); BG OXYGEN SATURATION 98.1 % (92.0-98.5); BG OXYHEMOGLOBIN 97.4 % (94.0-97.0); BG PCO2 32.2 mmHg (35.0-45.0); BG PH 7.297 (7.350-7.450); BG PO2 125.6 mmHg (75.0-100.0); BG SAMPLE SITE RIGHT RADIAL; BG TOTAL HEMOGLOBIN 9.7 g/dL (12.0-18.0); BG VENT MODE VENT - CPAP
[2019-05-15] MEDS ORDERED: BACTERIOSTATIC SODIUM CHLORIDE 0.9% 30ML VIAL IJ ONE (13:59)
[2019-05-15] MEDS: LANTHANUM CARBONATE 500MG CHEW TABLET NG SCH (17:30)
[2019-05-15] MEDS ORDERED: SEVELAMER CARBONATE 800 MG TABLET PO SCH (18:00)
[2019-05-15] MEDS: ACETAMINOPHEN 650MG/20.3ML UDC NG PRN (22:38)
[2019-05-16] VITALS (13 sets, daily range): BP systolic 124–168; BP diastolic 77–104
[2019-05-16] MEDS: INSULIN LISPRO 100 UNITS/ML SUBCUT SCH ×5 (06:00→23:56)
[2019-05-16] MEDS: BLOOD SUGAR DIAGNOSTIC STRIP TEST SCH ×4 (06:00→23:56)
[2019-05-16 06:36] LABS: BASOPHILS % 0.8 % (0.0-2.0); EOSINOPHILS % 2.6 % (0.0-5.0); HEMATOCRIT. 29.9 % (42.0-52.0); LYMPHOCYTES % 9.7 % (20.0-50.0); MEAN CORPUSCULAR HEMOGLOBIN 25.9 pg (28.0-32.0); MEAN CORPUSCULAR VOLUME 85.7 fL (80.0-94.0); MONOCYTES % 5.9 % (2.0-8.0); PLATELET 276 x1000/uL (130-400); RED BLOOD CELL COUNT 3.49 mill/uL (4.7-6.1); RED CELL DISTRIBUTION WIDTH 16.3 % (11.6-14.6)
[2019-05-16] MEDS: HYDRALAZINE HCL 100MG TABLET NG SCH ×3 (06:46→22:27)
[2019-05-16] MEDS: PHENYTOIN SODIUM 100MG/2ML VIAL IV SCH ×2 (06:46→15:38)
[2019-05-16] MEDS: METOCLOPRAMIDE HCL 10MG/2ML VIAL IV SCH ×3 (06:46→22:27)
[2019-05-16] MEDS: CLONIDINE 0.1MG TABLET PO SCH ×3 (06:47→22:28)
[2019-05-16] MEDS: AMLODIPINE 5MG TABLET NG SCH ×3 (06:47→22:27)
[2019-05-16] MEDS: HYDRALAZINE 20MG/ML VIAL IV PRN (07:40)
[2019-05-16] MEDS: LANTHANUM CARBONATE 500MG CHEW TABLET NG SCH ×3 (08:00→17:54)
[2019-05-16] MEDS: SIMETHICONE 80MG TABLET CHEW PO SCH ×4 (08:30→22:53)
[2019-05-16 08:34] LABS: PHOSPHORUS 6.9 mg/dL (2.5-4.9)
[2019-05-16] MEDS: LEVETIRACETAM 1,000 MG in SODIUM CHLORIDE 0.9% 100 ML IV SCH (09:50)
[2019-05-16] MEDS: CLONIDINE 0.1MG TABLET NG PRN (09:50)
[2019-05-16] MEDS: METOPROLOL TARTRATE 50MG TABLET NG SCH ×2 (09:51→22:25)
[2019-05-16] MEDS: PREDNISONE 5MG TABLET NG SCH (09:51)
[2019-05-16 11:42] LABS: BG BASE EXCESS -0.2 mmol/L (-2.0-2.0); BG CARBOXYHEMOGLOBIN 0.1 % (0.5-1.5); BG FRACTION INSPIRED OXYGEN 30; BG HCO3 ACT 21.5 mmol/L (22.0-26.0); BG METHEMOGLOBIN 0.7 % (0.0-1.5); BG OXYHEMOGLOBIN 97.2 % (94.0-97.0); BG PCO2 26.4 mmHg (35.0-45.0); BG PH 7.529 (7.350-7.450); BG PO2 125.5 mmHg (75.0-100.0); BG PRESSURE SUPPORT 8; BG SAMPLE SITE RIGHT BRACHIAL; BG VENT MODE VENT - CPAP
[2019-05-16] MEDS: DOCUSATE SODIUM SUGAR FREE 100MG/10ML UDC GT SCH (17:54)
[2019-05-16] MEDS ORDERED: EPOETIN ALFA 4000UNITS/ML VIAL SUBCUT SCH (21:00)
[2019-05-16] MEDS: ACETAMINOPHEN 650MG/20.3ML UDC NG PRN (22:24)
[2019-05-16] MEDS: LEVETIRACETAM 500MG TABLET PEG SCH (22:26)
[2019-05-16 23:00] LABS: BG CARBOXYHEMOGLOBIN 0.3 % (0.5-1.5); BG DEOXYHEMOGLOBIN 1.5 % (0.0-5.0); BG FRACTION INSPIRED OXYGEN 30; BG HCO3 ACT 21.8 mmol/L (22.0-26.0); BG METHEMOGLOBIN 0.1 % (0.0-1.5); BG OXYGEN SATURATION 98.5 % (92.0-98.5); BG OXYHEMOGLOBIN 98.1 % (94.0-97.0); BG PCO2 23.3 mmHg (35.0-45.0); BG PH 7.589 (7.350-7.450); BG PO2 115.5 mmHg (75.0-100.0); BG PRESSURE SUPPORT 8; BG SAMPLE SITE RIGHT BRACHIAL; BG TOTAL HEMOGLOBIN 10.2 g/dL (12.0-18.0); BG VENT MODE VENT - CPAP
[2019-05-17] VITALS (13 sets, daily range): BP systolic 122–154; BP diastolic 68–104
[2019-05-17] MEDS: ACETAMINOPHEN 650MG/20.3ML UDC NG PRN (05:45)
[2019-05-17] MEDS: CLONIDINE 0.1MG TABLET PO SCH ×2 (05:46→15:12)
[2019-05-17] MEDS: AMLODIPINE 5MG TABLET NG SCH ×2 (05:46→15:12)
[2019-05-17] MEDS: METOCLOPRAMIDE HCL 10MG/2ML VIAL IV SCH ×2 (05:46→15:13)
[2019-05-17] MEDS: HYDRALAZINE HCL 100MG TABLET NG SCH ×2 (05:46→15:11)
[2019-05-17] MEDS: INSULIN LISPRO 100 UNITS/ML SUBCUT SCH ×3 (05:47→17:40)
[2019-05-17] MEDS: BLOOD SUGAR DIAGNOSTIC STRIP TEST SCH ×3 (05:47→17:39)
[2019-05-17 06:49] LABS: BG BASE EXCESS 1.5 mmol/L (-2.0-2.0); BG CARBOXYHEMOGLOBIN 0.3 % (0.5-1.5); BG FRACTION INSPIRED OXYGEN 30; BG HCO3 ACT 23.7 mmol/L (22.0-26.0); BG METHEMOGLOBIN 0.4 % (0.0-1.5); BG OXYHEMOGLOBIN 97.3 % (94.0-97.0); BG PCO2 29.5 mmHg (35.0-45.0); BG PH 7.523 (7.350-7.450); BG PO2 110.6 mmHg (75.0-100.0); BG PRESSURE SUPPORT 8; BG SAMPLE SITE RIGHT BRACHIAL; BG TOTAL HEMOGLOBIN 10.8 g/dL (12.0-18.0); BG VENT MODE VENT - CPAP
[2019-05-17 07:40] LABS: BASOPHILS % 0.6 % (0.0-2.0); EOSINOPHILS % 3.3 % (0.0-5.0); HEMATOCRIT. 31.1 % (42.0-52.0); HEMOGLOBIN. 9.9 g/dL (14.0-18.0); LYMPHOCYTES % 12.6 % (20.0-50.0); MEAN CORPUSCULAR HEMOGLOBIN 25.5 pg (28.0-32.0); MEAN CORPUSCULAR VOLUME 79.7 fL (80.0-94.0); MEAN PLATELET VOLUME 8.5 fl (7.4-10.4); MONOCYTES % 7.1 % (2.0-8.0); NEUTROPHILS % 76.4 % (40.0-76.0); PLATELET 482 x1000/uL (130-400); RED CELL DISTRIBUTION WIDTH 15.4 % (11.6-14.6)
[2019-05-17 07:53] LABS: PHOSPHORUS 2.8 mg/dL (2.5-4.9)
[2019-05-17] MEDS: METOPROLOL TARTRATE 50MG TABLET NG SCH ×2 (10:32→21:46)
[2019-05-17] MEDS: LEVETIRACETAM 500MG TABLET PEG SCH ×2 (10:32→21:46)
[2019-05-17] MEDS: SIMETHICONE 80MG TABLET CHEW PO SCH ×4 (10:33→21:46)
[2019-05-17] MEDS: DOCUSATE SODIUM SUGAR FREE 100MG/10ML UDC GT SCH (10:33)
[2019-05-17] MEDS: LANTHANUM CARBONATE 500MG CHEW TABLET NG SCH ×3 (10:33→17:39)
[2019-05-17] MEDS ORDERED: KCL 20MEQ/100ML PREMIX 100 ML IV NR (11:00)
[2019-05-17] MEDS ORDERED: POTASSIUM CHLORIDE 20MEQ/PACKET PO NR (14:00)
[2019-05-17] MEDS ORDERED: VANCOMYCIN 1 G PREMIX 200 ML IV NR (16:00)
[2019-05-17 16:49] LABS: CLARITY URINE CLOUDY (CLEAR); COLOR URINE YELLOW (YELLOW); KETONES URINE NEGATIVE (NEGATIVE); LEUKOCYTE ESTERASE URINE NEGATIVE (NEGATIVE); NITRITE URINE NEGATIVE (NEGATIVE); OCCULT BLOOD URINE 2+ (NEGATIVE); PH URINE 6.5 (4.5-8.0); PROTEIN URINE 3+ (NEGATIVE); SPECIFIC GRAVITY URINE 1.018 (1.005-1.030); UROBILINOGEN URINE 0.2 E.U./dL (0.2-1.0)
[2019-05-17] MEDS ORDERED: PIPERACILLIN/TAZOBACTAM 2.25 G in DEXTROSE 5% WATER 50 ML IV SCH (18:00)
[2019-05-17] MEDS ORDERED: PHENYTOIN 100 MG/4 ML UDC NG SCH (21:00)
== END 2019-05-17 22:37 | DRG 3 ==
LOC: ER 12:18 → MICUSO 18:09 → EDBEDREQ 18:14 → ENRESERV 18:31 → 5EST 05-13 06:46
PROVIDERS: ADMIT Ophthalmology; ATTEND Ophthalmology
PROC: 00C70ZZ Extirpation of Matter from Cerebral Hemisphere, Open Approach (ICD-10-PCS; principal; 2019-04-28)
PROC: 00H632Z Insertion of Monitoring Device into Cerebral Ventricle, Percutaneous Approach (ICD-10-PCS; 2019-04-28)
PROC: 5A1955Z Respiratory Ventilation, Greater than 96 Consecutive Hours (ICD-10-PCS; 2019-04-28)
PROC: 0NU00JZ Supplement Skull with Synthetic Substitute, Open Approach (ICD-10-PCS; 2019-04-28)
PROC: 00U207Z Supplement Dura Mater with Autologous Tissue Substitute, Open Approach (ICD-10-PCS; 2019-04-28)
PROC: 4A103BD Monitoring of Intracranial Pressure, Percutaneous Approach (ICD-10-PCS; 2019-04-28)
PROC: 0BH17EZ Insertion of Endotracheal Airway into Trachea, Via Natural or Artificial Opening (ICD-10-PCS; 2019-04-28)
PROC: 02HV33Z Insertion of Infusion Device into Superior Vena Cava, Percutaneous Approach (ICD-10-PCS; 2019-04-29)
PROC: B548ZZA Ultrasonography of Superior Vena Cava, Guidance (ICD-10-PCS; 2019-04-29)
PROC: 5A1D70Z Performance of Urinary Filtration, Intermittent, Less than 6 Hours Per Day (ICD-10-PCS; 2019-04-29)
PROC: 5A1D70Z Performance of Urinary Filtration, Intermittent, Less than 6 Hours Per Day (ICD-10-PCS; 2019-05-01)
PROC: 5A1D70Z Performance of Urinary Filtration, Intermittent, Less than 6 Hours Per Day (ICD-10-PCS; 2019-05-03)
PROC: 5A1D70Z Performance of Urinary Filtration, Intermittent, Less than 6 Hours Per Day (ICD-10-PCS; 2019-05-05)
PROC: 4A00X4Z Measurement of Central Nervous Electrical Activity, External Approach (ICD-10-PCS; 2019-05-06)
PROC: 0D9670Z Drainage of Stomach with Drainage Device, Via Natural or Artificial Opening (ICD-10-PCS; 2019-05-06)
PROC: 5A1D70Z Performance of Urinary Filtration, Intermittent, Less than 6 Hours Per Day (ICD-10-PCS; 2019-05-07)
PROC: 0B110F4 Bypass Trachea to Cutaneous with Tracheostomy Device, Open Approach (ICD-10-PCS; 2019-05-09)
PROC: 5A1D70Z Performance of Urinary Filtration, Intermittent, Less than 6 Hours Per Day (ICD-10-PCS; 2019-05-09)
PROC: 5A1D70Z Performance of Urinary Filtration, Intermittent, Less than 6 Hours Per Day (ICD-10-PCS; 2019-05-11)
PROC: 5A1D70Z Performance of Urinary Filtration, Intermittent, Less than 6 Hours Per Day (ICD-10-PCS; 2019-05-13)
PROC: 0DH63UZ Insertion of Feeding Device into Stomach, Percutaneous Approach (ICD-10-PCS; 2019-05-15)
PROC: 5A1D70Z Performance of Urinary Filtration, Intermittent, Less than 6 Hours Per Day (ICD-10-PCS; 2019-05-16)
DX: I61.1 Nontraumatic intracerebral hemorrhage in hemisphere, cortical (principal); I21.4 Non-ST elevation (NSTEMI) myocardial infarction; N18.6 End stage renal disease; I50.33 Acute on chronic diastolic (congestive) heart failure; G93.6 Cerebral edema; J96.01 Acute respiratory failure with hypoxia; G93.49 Other encephalopathy; E87.1 Hypo-osmolality and hyponatremia; E46 Unspecified protein-calorie malnutrition; I13.2 Hypertensive heart and chronic kidney disease with heart failure and with stage 5 chronic kidney disease, or end stage renal disease; N17.9 Acute kidney failure, unspecified; N25.81 Secondary hyperparathyroidism of renal origin; T86.19 Other complication of kidney transplant; Z99.11 Dependence on respirator [ventilator] status; I82.621 Acute embolism and thrombosis of deep veins of right upper extremity; I82.B11 Acute embolism and thrombosis of right subclavian vein; K56.7 Ileus, unspecified; K56.609 Unspecified intestinal obstruction, unspecified as to partial versus complete obstruction; R40.20 Unspecified coma; J45.909 Unspecified asthma, uncomplicated; D64.9 Anemia, unspecified; E11.22 Type 2 diabetes mellitus with diabetic chronic kidney disease; E83.52 Hypercalcemia; E78.5 Hyperlipidemia, unspecified; E83.51 Hypocalcemia; D69.6 Thrombocytopenia, unspecified; E78.00 Pure hypercholesterolemia, unspecified; E83.39 Other disorders of phosphorus metabolism; F32.9 Major depressive disorder, single episode, unspecified; G25.3 Myoclonus; K29.70 Gastritis, unspecified, without bleeding; G90.8 Other disorders of autonomic nervous system; K44.9 Diaphragmatic hernia without obstruction or gangrene; M10.9 Gout, unspecified; R13.10 Dysphagia, unspecified; Y83.0 Surgical operation with transplant of whole organ as the cause of abnormal reaction of the patient, or of later complication, without mention of misadventure at the time of the procedure; Z79.899 Other long term (current) drug therapy; Z86.73 Personal history of transient ischemic attack (TIA), and cerebral infarction without residual deficits; Z90.49 Acquired absence of other specified parts of digestive tract; Z91.018 Allergy to other foods; Z91.14 Patient's other noncompliance with medication regimen; Z99.2 Dependence on renal dialysis; Z88.8 Allergy status to other drugs, medicaments and biological substances; Z78.1 Physical restraint status
CPT/HCPCS: 36415; 36600; 70496; 70498; 70551; 71045; 74018; 74176; 76937; 80048; 80053; 80076; 80185; 80202; 80305; 80307; 80320; 80329; 81003; 82140; 82375; 82550; 82805; 82962; 83036; 83735; 84100; 84439; 84443; 84478; 84484; 84550; 85025; 86850; 86900; 87070; 93005; 93306; 93880; 93970; 94002; 94003; 94640; 97162; 97167; 97530; 99291; A6261; C1713; C1725; C9113; J0360; J0690; J0696; J0885; J1100; J1165; J1815; J1940; J1953; J2060; J2250; J2270; J2405; J2543; J2704; J2710; J2765; J3010; J3370; J3480; J3490; J7030; J7040; J7050; J7060; J7507; J7512; J7517; Q9967; G0480